=== PATIENT | male | born 1950 | race Caucasian/White ===

== ENCOUNTER 2017-03-15 10:23 | Inpatient (IN) | payer MEDICARE, MEDICAID ==
[~2017-03-15] VITALS: Ht 170.2 cm; Wt 83.5 kg
[2017-03-15 10:25] VITALS: BP_SYST 134
[2017-03-15] MEDS ORDERED: NS 500 ML IV ONE (10:30)
[2017-03-15 10:56] LABS: BASOPHILS # (AUTO) 0.1 K/uL (0.0-0.2); BASOPHILS % (AUTO) 1.4 % (0.0-2.0); EOSINOPHILS # (AUTO) 0.1 K/uL (0.0-0.4); EOSINOPHILS % (AUTO) 1.6 % (0.0-4.0); HEMATOCRIT 37.4 % (36-54); HEMOGLOBIN 12.2 g/dL (14.0-18.0); LYMPHOCYTES # (AUTO) 0.8 K/uL (1.0-5.5); LYMPHOCYTES % (AUTO) 9.4 % (20.5-51.5); MEAN CORPUSCULAR HEMOGLOBIN 34 pg (27-31); MEAN CORPUSCULAR HGB CONC 33 % (32-36); MEAN CORPUSCULAR VOLUME 104 fL (79.0-98.0); MONOCYTES # (AUTO) 0.8 K/uL (0.0-1.0); MONOCYTES % (AUTO) 8.9 % (1.7-9.3); NEUTROPHILS # (AUTO) 7.1 K/uL (1.8-7.7); NEUTROPHILS % (AUTO) 78.7 % (40.0-70.0); PLATELET COUNT (AUTO) 199 K/uL (130-430); RED BLOOD CELL COUNT(AUTO) 3.61 MIL/uL (4.2-6.2); RED CELL DISTRIBUTION WIDTH 15.6 % (9.0-15.0); WHITE BLOOD COUNT (AUTO) 8.9 K/uL (4.8-10.8)
[2017-03-15 10:57] LABS: CALCIUM 9.5 mg/dL (8.4-11.0); CREATININE 1.36 mg/dL (0.55-1.30); POTASSIUM 4.2 mmol/L (3.5-5.1)
[2017-03-15 11:01] LABS: ALBUMIN 3.3 g/dL (3.4-4.8); TOTAL BILIRUBIN 0.6 mg/dL (0.0-1.0); TOTAL PROTEIN, SERUM 6.7 g/dL (6.4-8.3)
[2017-03-15 13:43] VITALS: BP_SYST 128
[2017-03-15] MEDS ORDERED: LOSA50TA3 PO (15:58)
[2017-03-15] MEDS ORDERED: GLU500 PO (15:58)
[2017-03-15] MEDS ORDERED: PRED1TAB PO (15:58)
[2017-03-15] MEDS ORDERED: ASA81 PO (15:58)
[2017-03-15] MEDS ORDERED: ALEN10TA6 PO (15:58)
[2017-03-15] MEDS ORDERED: SIMV20TA2 PO (15:58)
[2017-03-15] MEDS ORDERED: AMLO5TAB4 PO (15:58)
[2017-03-15] MEDS ORDERED: GABA-529 PO (15:58)
[2017-03-15] MEDS ORDERED: LISI10TA5 PO (15:58)
[2017-03-15] MEDS ORDERED: FAMO40TA7 PO (15:58)
[2017-03-15] MEDS ORDERED: TAMS-11 PO (15:58)
[2017-03-15] MEDS ORDERED: CYAN100067 PO (18:09)
[2017-03-15] MEDS ORDERED: FERR159T2 PO (18:09)
[2017-03-15] MEDS ORDERED: FOLI-43 PO (18:09)
[2017-03-15] MEDS ORDERED: METH2.5T PO ×2 (18:09)
[2017-03-15 18:16] VITALS: BP_SYST 138
[2017-03-15] MEDS ORDERED: DEXTROSE 50% JECT 50 ML DISP.SYRIN IVP PRN (18:30)
[2017-03-15] MEDS ORDERED: INSULIN REGULAR, HUMAN 100 UNITS/ML, 10 ML VIAL (novoLIN R) SUBCUT PRN (18:30)
[2017-03-15] MEDS: ACETAMINOPHEN 325 MG TABLET PO PRN (20:30)
[2017-03-15 20:37] VITALS: BP_SYST 125
[2017-03-15] MEDS ORDERED: TAMSULOSIN HCL 0.4 MG CAP PO SCH (21:00)
[2017-03-15 23:38] VITALS: BP_SYST 90
[2017-03-16 03:46] VITALS: BP_SYST 118
[2017-03-16] MEDS: ACETAMINOPHEN 325 MG TABLET PO PRN (06:21)
[2017-03-16 06:32] LABS: BASOPHILS % (AUTO) 0.2 % (0.0-2.0); EOSINOPHILS # (AUTO) 0.1 K/uL (0.0-0.4); EOSINOPHILS % (AUTO) 2.2 % (0.0-4.0); HEMATOCRIT 33.7 % (36-54); HEMOGLOBIN 11.1 g/dL (14.0-18.0); LYMPHOCYTES # (AUTO) 0.6 K/uL (1.0-5.5); LYMPHOCYTES % (AUTO) 9.1 % (20.5-51.5); MEAN CORPUSCULAR HEMOGLOBIN 34 pg (27-31); MEAN CORPUSCULAR HGB CONC 33 % (32-36); MEAN CORPUSCULAR VOLUME 102 fL (79.0-98.0); MONOCYTES # (AUTO) 0.9 K/uL (0.0-1.0); NEUTROPHILS # (AUTO) 4.7 K/uL (1.8-7.7); NEUTROPHILS % (AUTO) 73.5 % (40.0-70.0); PLATELET COUNT (AUTO) 149 K/uL (130-430); RED BLOOD CELL COUNT(AUTO) 3.29 MIL/uL (4.2-6.2); RED CELL DISTRIBUTION WIDTH 15.6 % (9.0-15.0)
[2017-03-16 06:43] LABS: WHITE BLOOD COUNT (AUTO) 6.3 K/uL (4.8-10.8)
[2017-03-16 06:53] LABS: ALBUMIN 2.7 g/dL (3.4-4.8); CALCIUM 8.2 mg/dL (8.4-11.0); CREATININE 1.27 mg/dL (0.55-1.30); FREE T4 (FREE THYROXINE) 0.8 ng/dL (0.6-1.6); POTASSIUM 3.7 mmol/L (3.5-5.1); THYROID STIMULATING HORMONE 1.03 uIu/mL (0.34-4.82); TOTAL BILIRUBIN 0.4 mg/dL (0.0-1.0); TOTAL PROTEIN, SERUM 5.8 g/dL (6.4-8.3)
[2017-03-16 07:25] LABS: ERYTHROCYTE SEDIMENTATION RATE 42 MM/HR (0-15)
[2017-03-16 08:00] VITALS: BP_SYST 114
[2017-03-16] MEDS ORDERED: CYANOCOBALAMIN 1000 mCg TABLET PO SCH (09:00)
[2017-03-16] MEDS ORDERED: SIMVASTATIN 20 MG TABLET PO SCH (09:00)
[2017-03-16] MEDS ORDERED: LOSARTAN POTASSIUM 50 MG TABLET (COZAAR) PO SCH (09:00)
[2017-03-16] MEDS ORDERED: GABAPENTIN 100 MG CAPSULE PO SCH (09:00)
[2017-03-16] MEDS ORDERED: FAMOTIDINE 20 MG TABLET PO SCH (09:00)
[2017-03-16] MEDS ORDERED: FERROUS SULFATE DRIED 65 MG PO SCH (09:00)
[2017-03-16] MEDS ORDERED: ASPIRIN 81 MG TAB.CHEW PO SCH (09:00)
[2017-03-16] MEDS ORDERED: amLODIPine BESYLATE 5 MG TABLET PO SCH (09:00)
[2017-03-16] MEDS ORDERED: metFORMIN HCL 500 MG TABLET PO SCH (09:00)
[2017-03-16] MEDS ORDERED: FOLIC ACID 1 MG TABLET PO SCH (09:00)
[2017-03-16] MEDS ORDERED: LISINOPRIL 10 MG TABLET (PRINIVIL) PO SCH (09:00)
[2017-03-16] MEDS ORDERED: predniSONE 1 MG TABLET PO SCH (09:00)
[2017-03-16 15:08] VITALS: BP_SYST 122
[2017-03-16 17:21] VITALS: BP_SYST 122
[2017-03-18] MEDS ORDERED: ALENDRONATE SODIUM 10 MG TABLET (FOSAMAX) PO SCH (06:30)
== END 2017-03-16 16:30 | disposition home or self-care (01) | DRG 866 ==
LOC: EDBD 10:23 → SED 10:23 → STU 13:35
PROVIDERS: ADMIT Internal Medicine; ATTEND Internal Medicine
DX: B34.9 Viral infection, unspecified (principal); E44.0 Moderate protein-calorie malnutrition; E87.1 Hypo-osmolality and hyponatremia; E11.9 Type 2 diabetes mellitus without complications; I10 Essential (primary) hypertension; D64.9 Anemia, unspecified; E66.9 Obesity, unspecified; M79.7 Fibromyalgia; E78.00 Pure hypercholesterolemia, unspecified; Z79.82 Long term (current) use of aspirin; Z79.899 Other long term (current) drug therapy; Z68.28 Body mass index [BMI] 28.0-28.9, adult; Z87.891 Personal history of nicotine dependence; Z79.84 Long term (current) use of oral hypoglycemic drugs
CPT/HCPCS: 36415; 70450-TC; 70551; 71010; 80053; 80061; 82962; 83036; 83735-TC; 83880; 84439; 84443-TC; 84484; 85025; 85651-TC; 93005; 93306; 93880; 95816; 96360; 99285; J1815; J7040; J7512; J8610